=== PATIENT | male | born 1975 | race Two or more races ===

== ENCOUNTER 2024-06-12 21:08 | Emergency (ER) | payer OTHER ==
[~2024-06-12] VITALS: Ht 172.7 cm; Wt 72.6 kg
[2024-06-13] MEDS ORDERED: KETOROLAC TROMETHAMINE 60 MG VIAL IM STA (02:55)
[2024-06-13] MEDS ORDERED: KETOROLAC TROMETHAMINE 60 MG VIAL IM ONE (03:00)
[2024-06-13] MEDS ORDERED: KETO10TA2 PO (05:34)
== END 2024-06-13 05:45 ==
LOC: ER 21:10
DX: S00.80XA Unspecified superficial injury of other part of head, initial encounter (principal); S50.901A Unspecified superficial injury of right elbow, initial encounter; S70.911A Unspecified superficial injury of right hip, initial encounter; S40.911A Unspecified superficial injury of right shoulder, initial encounter; V49.9XXA Car occupant (driver) (passenger) injured in unspecified traffic accident, initial encounter; Y93.89 Activity, other specified; Y92.413 State road as the place of occurrence of the external cause; Z88.8 Allergy status to other drugs, medicaments and biological substances